=== PATIENT | female | born 1945 | race American Indian/Alaskan Native ===

== ENCOUNTER 2019-04-19 19:24 | Emergency (ER) | payer MEDICARE ==
--- NOTE | 2019-04-19 20:12 | Emergency Department Report ---
Blank Doc - Documentation Documentation: 73 Y/O FEMALE WITH NEW HISTORY OF HEMORRHOIDS THAT HAVE BEEN RESISTANT TO TOPI [facility]UNA[facility] THERAPIES AND APPOINTMENT WITH GI COMING UP NEXT WEEK ON SUNDAY PRESENTS TO ED C/O OF HEMORRHOID PAIN. NO BLEEDING NOTED NO FEVERISH. PLAN. RECTAL EVALUATION AND TREATMENT RECOMMENDATIONS
--- NOTE | 2019-04-19 20:50 | Emergency Department Report ---
HPI - General Chief Complaint: Rectal Pain Time Seen by Provider: 04/19/19 20:10 - HPI HPI: Room 24 The patient is a 73-year-old female presenting with chief complaint of constipation. The patient says she's been constipated since 04/08/2019. Patient complains of diffuse abdominal pain with constipation. Patient states she's been to several physicians and taken laxatives and stool softeners but nothing has helped. Patient states her last normal bowel movement was approximately 2 weeks ago. 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 Location: Abdomen Duration: [See above] Quality: [See above] Severity: [See above] Modifying factors: [see above] Context: [see above] Mode of transportation: [not driving] ED Past Medical Hx - Past Medical History Previous Medical History?: Yes Additional medical history: Constipation, Newly diagnosed with hemorrhoids, Pneumonia - Surgical History Past Surgical History?: Yes Additional Surgical History: Right foot surgery - Family History Family history: no significant - Social History Smoking Status: Never Smoker Substance Use Type: None - Medications Home Medications: Home Medications Medication Instructions Recorded Confirmed Last Taken Type [id number]/Sod Sulf,Bicarb,Cl/KCl 4,000 ml PO ONCE #1 soln.recon 04/20/19 Unknown Rx [Golytely Solution] oxyCODONE /ACETAMINOPHEN [Percocet 1 tab PO Q6HR PRN #14 tablet 04/20/19 Unknown Rx 5/325] ED Review of Systems ROS: Stated complaint: RECTAL PAIN/CONSTIPATION Other details as noted in HPI Constitutional: denies: fever Eyes: denies: eye pain ENT: denies: throat pain Respiratory: no symptoms reported Cardiovascular: denies: chest pain Endocrine: no symptoms reported Gastrointestinal: abdominal pain, constipation. denies: nausea, vomiting Genitourinary: denies: dysuria Musculoskeletal: denies: back pain Neurological: denies: headache Physical Exam - Physical Exam Vital Signs: Vital Signs 04/19/19 04/19/19 19:30 20:15 Temperature 99.0 F 99.0 F Pulse Rate 110 H 113 H Respiratory 18 18 Rate Blood Pressure 150/95 150/95 O2 Sat by Pulse 97 97 Oximetry Physical Exam: GENERAL: The patient is well-developed well-nourished female lying on stretcher not appearing to be in acute distress. [] HEENT: Normocephalic. Atraumatic. Extraocular motions are intact. Patient has moist mucous membranes. NECK: Supple. Trachea midline CHEST/LUNGS: Clear to auscultation. There is no respiratory distress noted. HEART/CARDIOVASCULAR: Regular. There is no tachycardia. There is no gallop rub or murmur. ABDOMEN: Abdomen is soft, with discomfort to palpation in the midepigastric and left lower quadrant. No rebound or guarding. Patient has normal bowel sounds. There is no abdominal distention. SKIN: There is no rash. There is no edema. There is no diaphoresis. NEURO: The patient is awake, alert, and oriented. The patient is cooperative. The patient has no focal neurologic deficits. The patient has normal speech MUSCULOSKELETAL: There is no evidence of acute injury. ED Course Vital Signs 04/19/19 04/19/19 19:30 20:15 Temperature 99.0 F 99.0 F Pulse Rate 110 H 113 H Respiratory 18 18 Rate Blood Pressure 150/95 150/95 O2 Sat by Pulse 97 97 Oximetry ED Medical Decision Making - Lab Data Result diagrams: 04/19/19 20:48 04/19/19 20:48 - Radiology Data Radiology results: report reviewed (CT abdomen and pelvis), image reviewed (CT abdomen and pelvis) [place] [address] Cat Scan Report Signed Patient: FRED TODD MR#: [id number] [birth year] Acct:[id number] Age/Sex: 73 / F ADM Date: 04/19/19 Loc: ED Attending Dr: Ordering Physician: LUIS CERVANTES MD Date of Service: 04/19/19 Procedure(s): CT abdomen pelvis w con Accession Number(s): [id number] cc: LUIS CERVANTES MD PROCEDURE: CT ABDOMEN PELVIS W CON TECHNIQUE: Computerized axial tomography of the abdomen and pelvis was performed after the administration of IV iodinated nonionic contrast. CT DOSE LENGTH PRODUCT: 3117.5 mGycm HISTORY: diffuse abdominal pain, constipation COMPARISONS: None . FINDINGS: Visualized lower thorax: No significant abnormality. Liver: Normal size and attenuation. Spleen: Normal size and attenuation. Gallbladder and biliary system: There are stones within the gallbladder lumen. No dilatation of the biliary ductal system. Pancreas: Normal. Adrenals: Normal. Kidneys: Both kidneys have a normal size. No hydronephrosis. No renal stones or masses. GI tract: The stomach is normal. The small bowel has a normal appearance without obstruction. Cecum, appendix and colon are normal. Moderate fecal debris within the colon.. Lymph nodes and mesentery: Normal. Vasculature: Normal.. Bladder: Normal. Reproductive organs: Normal. Peritoneum: No free fluid. Musculoskeletal structures: Moderate degenerative changes of the spine. Other: None. IMPRESSION: There is no evidence of intestinal or urinary tract obstruction. No ileus or enteritis. The appendix is normal. There is significant fecal debris throughout the colon.. This document is electronically signed by Rachel Weaver DO., April 20 2019 12:15:23 AM ET Transcribed By: [facility] Dictated By: RACHEL WEAVER MD Electronically Authenticated By: RACHEL WEAVER MD Signed Date/Time: 04/20/19 0017 DD/ 43 TD/TT: 04/19/192343 - Differential Diagnosis constipation, small bowel obstruction, colonic mass, Critical care attestation.: If time is entered above; I have spent that time in minutes in the direct care of this critically ill patient, excluding procedure time. ED Disposition Clinical Impression: Constipation Disposition: DC-01 TO HOME OR SELFCARE Is pt being admited?: No Does the pt Need Aspirin: No Condition: Stable Instructions: Constipation (ED) Additional Instructions: Return to the emergency department immediately should you develop worsening symptoms, fever, inability to tolerate food or liquid or any other concerns. Prescriptions: [id number]/Sod Sulf,Bicarb,Cl/KCl [Golytely Solution] 4,000 ml PO ONCE #1 soln.recon oxyCODONE /ACETAMINOPHEN [Percocet 5/325] 1 tab PO Q6HR PRN #14 tablet PRN Reason: Pain Referrals: MILTON MONTANO MD [Staff Physician] - 3-5 Days [place] RASHEED JUSTICE MD [Primary Care Provider] - [facility] (Dr. Montano is a towel rolling machine operator. Please follow up with him for further evaluation) Time of Disposition: 00:52
[2019-04-19 21:08] LABS: Hematocrit 37.9 % (30.3-42.9); Hemoglobin 13.3 gm/dl (10.1-14.3); Mean Corpuscular HGB Conc 35 % (30-34); Mean Corpuscular Volume 95 fl (79-97); Platelet Count 202 K/mm3 (140-440); Red Blood Count 3.98 M/mm3 (3.65-5.03); Red Cell Distribution Width 13.7 % (13.2-15.2)
[2019-04-19 21:29] LABS: Alanine Aminotransferase 19 units/L (7-56); BUN/Creatinine Ratio 11; Blood Urea Nitrogen 10 mg/dL (7-17); Calcium 8.9 mg/dL (8.4-10.2); Hemolysis Index 8
[2019-04-19 23:41] LABS: Anisocytosis 1+; Platelet Estimate Consistent w Auto; Total Cells Counted 100
--- NOTE | 2019-04-20 00:17 | Cat Scan Report ---
PROCEDURE: CT ABDOMEN PELVIS W CON TECHNIQUE: Computerized axial tomography of the abdomen and pelvis was performed after the administr ation of IV iodinated nonionic contrast. CT DOSE LENGTH PRODUCT: 3117.5 mGycm HISTORY: diffuse abdominal pain, constipation COMPARISONS: None . FINDINGS: Visualized lower thorax: No significant abnormality. Liver: Normal size and attenuation. Spleen: Normal size and attenuation. Gallbladder and biliary system: There are stones within the gallbladder lumen. No dilatation of the b iliary ductal system. Pancreas: Normal. Adrenals: Normal. Kidneys: Both kidneys have a normal size. No hydronephrosis. No renal stones or masses. GI tract: The stomach is normal. The small bowel has a normal appearance without obstruction. Cecum, appendix and colon are normal. Moderate fecal debris within the colon.. Lymph nodes and mesentery: Normal. Vasculature: Normal.. Bladder: Normal. Reproductive organs: Normal. Peritoneum: No free fluid. Musculoskeletal structures: Moderate degenerative changes of the spine. Other: None. IMPRESSION: There is no evidence of intestinal or urinary tract obstruction. No ileus or enteritis. The appendix is normal. There is significant fecal debris throughout the colon.. This document is electronically signed by Rachel Weaver DO., April 20 2019 12:15:23 AM ET
[2019-04-20 00:25] VITALS: BP 148/63
== END 2019-04-20 01:06 | disposition home or self-care (01) ==
LOC: ED 19:24
DX: K59.00 Constipation, unspecified (principal); Z79.899 Other long term (current) drug therapy
CPT/HCPCS: 36415; 74177; 80053; 83690; 85007; 85025; 99284; Q9967